=== PATIENT | male | born 1990 | race Caucasian/White ===

== ENCOUNTER 2016-04-09 17:14 | Emergency (ER) | payer OTHER ==
[~2016-04-09] VITALS: Ht 182.9 cm; Wt 78.5 kg
[2016-04-09 17:21] VITALS: BP 144/96
[2016-04-09] MEDS ORDERED: ULTRAM50 M1 PO (18:38)
[2016-04-09] MEDS ORDERED: NAPROSYN500 M1 PO (18:38)
--- NOTE | 2016-04-09 18:39 | ED ANKLE/FOOT INJURY COMPLAINT ---
See Addendum History of Present Illness General Chief Complaint: Foot or Ankle Injury Stated Complaint: L FOOT PAIN Source: patient Exam Limitations: no limitations Vital Signs & Intake/Output Vital Signs & Intake/Output Vital Signs Date Time Temp Pulse Resp B/P Pulse O2 O2 Flow FiO2 Ox Delivery Rate 04/09 1721 98.4 72 18 144/96 98 Room Air Allergies Coded Allergies: No Known Allergies (04/09/16) Reconcile Medications Naproxen (Naprosyn) 500 MG TABLET 1 TAB PO BID PAIN Tramadol HCl (Ultram) 50 MG TABLET 1 TAB PO Q6P PRN PAIN Triage Note: PT TO TRIAGE WITH C/O LEFT FOOT PAIN 10/27 xMONTH. PT WAS DIAGNOSED WITH PLANTAR FASCIITIS ON 03/27, DENIES RECENT INJURIES. VSS. Triage Nurses Notes Reviewed? yes HPI: 26-year-old male with complaints of chronic left foot pain which is worsening. He states he stands and walks a lot, he was seen at [facility] 3 weeks ago and diagnosed with plantar fasciitis and a bunion. He was placed on ibuprofen and referred to a nuclear design engineer. The patient saw the nuclear design engineer last week and he was placed in an arch support which has helped a little bit, your Profen did not help. He is not on any current medication at this time. He states he is missing work because he cannot walk as it is too painful. His symptoms are moderate. He denies any swelling. There is no trauma. He has had an x-ray previously which he reports is negative. Past History Travel History Traveled to [place] past 21 day No Medical History Any Pertinent Medical History? none Surgical History Surgical History: none Psychosocial History What is your primary language Latvian Tobacco Use: Never used Family History Hx Contributory? No Review of Systems Review of Systems Constitutional: Reports: see HPI. EENTM: Reports: no symptoms. Respiratory: Reports: no symptoms. Cardiovascular: Reports: no symptoms. GI: Reports: no symptoms. Genitourinary: Reports: no symptoms. Musculoskeletal: Reports: see HPI. Skin: Reports: no symptoms. Neurological/Psychological: Reports: no symptoms. Hematologic/Endocrine: Reports: no symptoms. Immunologic/Allergic: Reports: no symptoms. All Other Systems: Reviewed and Negative Physical Exam Physical Exam Leg/Knee/Thigh Left: normal range of motion Comments: Well-developed well-nourished no apparent distress. HEENT: Atraumatic, extraocular motion intact Neck: Supple, no lymphadenopathy Back: Nontender Respiratory: No respiratory distress Extremities: No edema, full range of motion Neuro: Alert and oriented x3 Psych: Mood affect normal, normal memory normal judgment. Skin: Warm and dry, no rash on exposed skin The left foot, atraumatic. Valgus deformity and bunion noted distal first ray. No tenderness of the plantar fascial region or calcaneal region. Full range of motion, no fifth metatarsal tenderness, no swelling no ecchymosis. No erythema. Progress Differential Diagnosis: DVT, CHF, arterial insufficiency, cellulitis, septic arthritis, gout, fracture, dislocation, sprain, contusion, compartmental syndrome Plan of Care: Rest ice and elevation NSAIDs pain medication continue arch supports and podiatry follow-up in one week, patient has an appointment already Departure Departure Disposition: HOME OR SELF CARE Condition: Stable Clinical Impression Primary Impression: Foot pain, left Secondary Impressions: Hallux valgus (acquired), left foot Referrals: PATIENT HAS NO PRIMARY CARE DR (PCP/Family) Additional Instructions: Follow-up with your nuclear design engineer next week as scheduled. Take medication for pain and inflammation as directed. Ice, continue shoe insert, elevate your foot as much as possible. Departure Forms: Customer Survey General Discharge Information Prescriptions: Current Visit Scripts Tramadol HCl (Ultram) 1 TAB PO Q6P PRN PAIN #15 TAB Naproxen (Naprosyn) 1 TAB PO BID #30 TAB
== END 2016-04-09 18:55 ==
LOC: ERH 17:14
DX: M20.12 Hallux valgus (acquired), left foot (principal)